=== PATIENT | female | born 1945 | race Caucasian/White ===

== ENCOUNTER → 2017-03-12 | Outpatient (CLI) | payer MEDICARE, OTHER ==
--- NOTE | 2017-03-12 14:44 | REPMRS ---
Patient History The patient states she had a clinical breast exam in Patient is postmenopausal. Family history of prostate cancer in maternal grandfather at age 70. Taking estrogen for 11 years. Digital Woman Screen Mammo: March 12, 2017 - Exam #: [id number] Bilateral CC and MLO view(s) were taken. Technologist: Lindy Addison, Technologist Prior study comparison: September 30, 2014, digital woman screen mammo performed at [facility]. March 05, 2012, bilateral bilat screen digital mammo, performed at [facility] ([facility] FINDINGS: The breast tissue is heterogeneously dense. This may lower the sensitivity of mammography. There has been no change in the appearance of the mammogram from the prior studies. There is a moderate amount of residual fibroglandular tissue which is fairly symmetric. There is no interval development of dominant mass, areas of architectural distortion, or clustered microcalcification typical of malignancy. ASSESSMENT: BI-RADS/ACR category 1 mammogram. Negative. Recommendation Routine screening mammogram in 1 year (for women over age 40). This mammogram was interpreted with the aid of an FDA-approved computer-aided dectection system. Electronically Signed By: Raleigh Watson MD 03/12/17 [id number]
--- NOTE | 2017-03-14 08:29 | DEXA ---
AP SPINE L1 - L4 0.976 -1.8 -0.1 LT FEMUR TOTAL 0.886 -1.0 0.5 RT FEMUR TOTAL 0.954 -0.4 1.0 TOTAL BODY TOTAL OTHER DUAL FEMUR FRAX* ASSESSMENT Risk factors: 10 year probability of fracture Major osteoporotic fracture % Hip fracture % COMMENTS: There is low bone density of the spine and hips. Lumbar scoliosis. The density of the spine has decreased 12.9% since the initial exam on 08/2000. The spine density has increased 2.2% since the most recent exam on 09/2014. The density of the left hip has decreased 5.2% since the initial exam on 08/2000. The density of the left hip has increased 1.7% since the most recent exam on 2014. The density of the right hip has decreased 13.2% since the initial exam on 2000. The density of the right hip has increased 2.1% since the most recent exam on 2014. FOLLOW-UP: Recommendation for the next bone density exam: 2 years. ISAAC
== END ==
LOC: M WHC 13:24
PROVIDERS: ATTEND Internal Medicine
DX: Z12.31 Encounter for screening mammogram for malignant neoplasm of breast (principal); M85.80 Other specified disorders of bone density and structure, unspecified site; Z78.0 Asymptomatic menopausal state; Z79.890 Hormone replacement therapy; Z80.42 Family history of malignant neoplasm of prostate
CPT/HCPCS: 77080; G0202

== ENCOUNTER → 2017-10-17 | Outpatient (REF) | payer MEDICARE, OTHER ==
[2017-10-18 16:35] LABS: TOTAL T3 173.6 NG/DL (60.0-181.0)
== END ==
LOC: M LAB REF 12:32
DX: E03.9 Hypothyroidism, unspecified (principal)
CPT/HCPCS: 84480

== ENCOUNTER → 2018-02-20 | Outpatient (CLI) | payer MEDICARE, OTHER | LOC: M RAD 12:14 | DX: E05.90 Thyrotoxicosis, unspecified without thyrotoxic crisis or storm (principal) | CPT/HCPCS: 78012 ==

== ENCOUNTER → 2018-02-20 | Outpatient (REF) | payer MEDICARE, OTHER ==
[2018-02-20 14:09] LABS: BACTERIA, URINE AUTO 1+ (NEGATIVE); MUCUS, URINE SMALL (NEGATIVE); RBC, URINE AUTO 3 /HPF (0-3); SQUAMOUS EPITHELIAL CELL UR AU 0 /HPF (0-6); WBC, URINE AUTO 1 /HPF (0-3)
== END ==
LOC: M LAB REF 13:00
DX: R31.9 Hematuria, unspecified (principal)
CPT/HCPCS: 81015

== ENCOUNTER 2018-03-04 07:43 | Day surgery (SDC) | payer MEDICARE, OTHER ==
[2018-03-04] MEDS ORDERED: PROPOFOL 200 MG/20 ML VIAL As Ordered ×2 (08:11)
[2018-03-04] MEDS ORDERED: LIDOCAINE 2% INJ 100 MG/5 ML SDV (FOR ANES.) As Ordered (08:39)
[2018-03-06] MEDS ORDERED: NS 1,000 ML IV (06:00)
== END 2018-03-04 09:47 | disposition home or self-care (01) ==
LOC: M OPP 07:43
DX: Z12.11 Encounter for screening for malignant neoplasm of colon (principal); Z83.71 Family history of colonic polyps; D12.3 Benign neoplasm of transverse colon; K64.0 First degree hemorrhoids; R00.2 Palpitations; I10 Essential (primary) hypertension; E05.90 Thyrotoxicosis, unspecified without thyrotoxic crisis or storm; M19.90 Unspecified osteoarthritis, unspecified site; G43.909 Migraine, unspecified, not intractable, without status migrainosus; Z78.0 Asymptomatic menopausal state; Z87.442 Personal history of urinary calculi; Z88.8 Allergy status to other drugs, medicaments and biological substances; Z88.5 Allergy status to narcotic agent; Z79.82 Long term (current) use of aspirin; Z79.899 Other long term (current) drug therapy; Z87.891 Personal history of nicotine dependence
CPT/HCPCS: 45385

== ENCOUNTER → 2019-03-13 | Outpatient (CLI) | payer MEDICARE, OTHER ==
[~2019-03-13] MED LIST: ASPI81TA26 PO; ATEN25TA PO; CALCTAB89 PO; COQ1100C PO; D 50CAP PO; HYDR25TAB PO; LISI40TA PO; MAG-400T7 PO; MEGA1CAP3 PO; PRAV40TA2 PO
--- NOTE | 2019-03-13 14:29 | REPMRS ---
Patient History The patient states she had a clinical breast exam in 03/2018. Patient is postmenopausal. Family history of prostate cancer at age 70 in maternal grandfather. Took estrogen for 11 years. 3D TOMOSYNTHESIS WAS PERFORMED. The [facility] lifetime risk for breast cancer is 3.8%. Digital Woman Screen Mammo: March 13, 2019 - Exam #: [id number] Bilateral CC and MLO view(s) were taken. Technologist: Lakia Goodrich, Technologist Prior study comparison: March 12, 2017, digital woman screen mammo performed at [facility]. September 30, 2014, digital woman screen mammo performed at [facility]. FINDINGS: The breast tissue is heterogeneously dense. This may lower the sensitivity of mammography. There has been no change in the appearance of the mammogram from the prior studies. There is a moderate amount of residual fibroglandular tissue which is fairly symmetric. There is no interval development of dominant mass, areas of architectural distortion, or clustered microcalcification typical of malignancy. Assessment: BI-RADS/ACR category 1 mammogram. Negative Mammogram. Recommendation Routine screening mammogram in 1 year (for women over age 40). This mammogram was interpreted with the aid of an FDA-approved computer-aided dectection system. Electronically Signed By: Raleigh Watson MD 03/13/19 [id number]
--- NOTE | 2019-03-19 13:04 | DEXA ---
AP SPINE L1 - L4 0.935 -2.1 -0.4 LT FEMUR TOTAL 0.897 -0.9 0.7 LT NECK 0.880 -1.1 0.6 RT FEMUR TOTAL 0.907 -0.8 0.8 RT NECK 0.786 -1.8 0.0 TOTAL BODY TOTAL OTHER COMMENTS: There is low bone density of the spine and hips. The decreased density of the spine does represent a significant change. The increased density of the left hip does not represent significant change. The decreased density of the right hip does represent a significant change. The density of the spine has decreased 16.5% since the initial exam on 09/13/2000. The spine density has decreased 4.2% since the most recent exam on 03/12/2017. The density of the left hip has decreased 4.1% since the initial exam on 09/13/2000. The density of the left hip has increased 1.2% since the most recent exam on 03/12/2017. The density of the right hip has decreased 17.5% since the initial exam on 09/13/2000. The density of the right hip has decreased 4.9% since the most recent exam on 03/12/2017. FOLLOW-UP: Recommendation for the next bone density exam: 2 years. ISAAC
== END ==
LOC: M WHC 12:49
PROVIDERS: ATTEND Internal Medicine
DX: Z12.31 Encounter for screening mammogram for malignant neoplasm of breast (principal); M81.0 Age-related osteoporosis without current pathological fracture

== ENCOUNTER → 2020-04-27 | Outpatient (CLI) | payer MEDICARE, OTHER ==
--- NOTE | 2020-04-27 15:39 | REPMRS ---
Patient History The patient states she had a clinical breast exam in 09/07 Family history of prostate cancer at age 70 in maternal grandfather. Took estrogen for 11 years. Digital Woman Screen Mammo: April 27, 2020 - Exam #: [id number] Bilateral CC and MLO view(s) were taken. Technologist: Diane Hatfield, Technologist Prior study comparison: March 13, 2019, bilateral digital woman screen mammo performed at [facility]. March 12, 2017, digital woman screen mammo performed at [facility]. September 30, 2014, digital woman screen mammo performed at [facility]. FINDINGS: The breast tissue is heterogeneously dense. This may lower the sensitivity of mammography. The Volpara volumetric breast density category is: C. There is a moderate amount of heterogeneously dense fibroglandular tissue which is fairly symmetric. There is no interval development of dominant mass, architectural distortion, or grouped microcalcification typical of malignancy. There has been no change in the appearance of the mammogram from the prior studies. 3-D tomosynthesis shows no additional findings. Assessment: BI-RADS/ACR category 1 mammogram. Negative Mammogram. Recommendation Routine screening mammogram of both breasts in 1 year (for women over age 40). This patient's [facility] Lifetime Breast Cancer RIsk is estimated at 3.4 %. This mammogram was interpreted with the aid of an FDA-approved computer-aided dectection system. Electronically Signed By: Deng Hawkins MD 04/27/20 [id number]
== END ==
LOC: M WHC 14:48
PROVIDERS: ATTEND Internal Medicine
DX: Z12.31 Encounter for screening mammogram for malignant neoplasm of breast (principal); Z92.23 Personal history of estrogen therapy

== ENCOUNTER → 2020-08-25 | Outpatient (REF) | payer MEDICARE, OTHER ==
[~2020-08-25] MED LIST changes: +HYDR-3490 PO; -HYDR25TAB PO; -LISI40TA PO; +LISI40TA4 PO
[2020-08-25 13:35] LABS: BACTERIA, URINE AUTO NEGATIVE (NEGATIVE); RBC, URINE AUTO 7 /HPF (0-3); SQUAMOUS EPITHELIAL CELL UR AU 0 /HPF (0-6); WBC, URINE AUTO 2 /HPF (0-3)
== END ==
LOC: M LAB REF 11:54
PROVIDERS: ATTEND Internal Medicine
DX: N39.0 Urinary tract infection, site not specified (principal)

== ENCOUNTER → 2020-09-01 | Outpatient (REF) | payer MEDICARE, OTHER ==
[2020-09-01 12:21] LABS: APPEARANCE, URINE CLEAR (CLEAR); BACTERIA, URINE AUTO 1+ (NEGATIVE); BILIRUBIN, URINE AUTO NEGATIVE (NEGATIVE); BLOOD, URINE BLOOD NEGATIVE (NEGATIVE); COLOR, URINE YELLOW (YELLOW); GLUCOSE, URINE (UA) AUTO NEGATIVE (NEGATIVE); KETONE, URINE AUTO NEGATIVE (NEGATIVE); LEUKOCYTE ESTERASE, URINE AUTO NEGATIVE (NEGATIVE); NITRITE, URINE AUTO NEGATIVE (NEGATIVE); PROTEIN, URINE AUTO NEGATIVE (NEGATIVE); RBC, URINE AUTO 10 /HPF (0-3); SPECIFIC GRAVITY URINE AUTO 1.013 (1.002-1.035); SQUAMOUS EPITHELIAL CELL UR AU 0 /HPF (0-6); UROBILINOGEN, URINE AUTO 0.2 mg/dL (0.0-2.0); WBC, URINE AUTO 0 /HPF (0-3)
== END ==
LOC: M LAB REF 11:30
PROVIDERS: ATTEND Internal Medicine
DX: R31.9 Hematuria, unspecified (principal)

== ENCOUNTER → 2020-09-08 | Outpatient (REF) | payer MEDICARE, OTHER ==
[2020-09-08 13:14] LABS: APPEARANCE, URINE CLEAR (CLEAR); BACTERIA, URINE AUTO NEGATIVE (NEGATIVE); BILIRUBIN, URINE AUTO NEGATIVE (NEGATIVE); BLOOD, URINE BLOOD 1+ (NEGATIVE); COLOR, URINE YELLOW (YELLOW); GLUCOSE, URINE (UA) AUTO NEGATIVE (NEGATIVE); KETONE, URINE AUTO NEGATIVE (NEGATIVE); LEUKOCYTE ESTERASE, URINE AUTO NEGATIVE (NEGATIVE); NITRITE, URINE AUTO NEGATIVE (NEGATIVE); PROTEIN, URINE AUTO NEGATIVE (NEGATIVE); RBC, URINE AUTO 2 /HPF (0-3); SPECIFIC GRAVITY URINE AUTO 1.005 (1.002-1.035); SQUAMOUS EPITHELIAL CELL UR AU 0 /HPF (0-6); UROBILINOGEN, URINE AUTO 0.2 mg/dL (0.0-2.0); WBC, URINE AUTO 1 /HPF (0-3)
== END ==
LOC: M LAB REF 11:14
PROVIDERS: ATTEND Internal Medicine
DX: R31.9 Hematuria, unspecified (principal)

== ENCOUNTER → 2020-10-08 | Outpatient (CLI) | payer MEDICARE, OTHER ==
[~2020-10-08] MED LIST changes: +ISOVUE-370 76% 100ML VIAL As Ordered ONE
--- NOTE | 2020-10-08 14:45 | REP ---
INDICATION: HEMATURIA. COMPARISON: None. TECHNIQUE: CT abdomen and pelvis performed without IV contrast. CT abdomen and pelvis performed with IV contrast as well, following intravenous administration of 100 cc of Isovue 370. Sagittal, coronal and 3D MIP reconstruction images are performed. FINDINGS: Lung bases: There are mild bibasilar fibrotic changes. Liver: There is a cluster of tiny calcifications in the right lobe of the liver, with no evidence of liver mass. Gallbladder: Multiple gallstones are seen in a moderately distended gallbladder. No evidence of biliary dilatation. Spleen: Normal. Adrenals: Normal. Pancreas: Normal. Kidneys: No renal or ureteral calculus is seen. There is no hydroureteronephrosis. There is a cyst in the lower pole the right kidney 9 mm in diameter. Two cysts are seen in the upper pole the left kidney, measuring 2.9 cm and 1 cm in diameter respectively. Small and large bowel: Unremarkable. Free fluid: None. Adenopathy: None. Appendix: Not inflamed. Osseous structures: There are degenerative changes of the spine without compression deformity.. Pelvis: No mass. A small left inguinal hernia contains noninflamed fat. There is no bladder calculus or evidence of mass. IMPRESSION: Multiple gallstones in a moderately distended gallbladder. Bilateral renal cysts. No renal, ureteral or bladder calculus. No hydroureteronephrosis. Small left inguinal hernia contains noninflamed fat. <Electronically signed by Raleigh Watson > 10/08/20 0836
== END ==
LOC: M RAD 12:56
PROVIDERS: ATTEND Internal Medicine
DX: E31.9 Polyglandular dysfunction, unspecified (principal)
CPT/HCPCS: 74178; Q9967

== ENCOUNTER → 2021-02-25 | Outpatient (CLI) | payer MEDICARE, OTHER ==
[~2021-02-25] MED LIST changes: -ISOVUE-370 76% 100ML VIAL As Ordered ONE
--- NOTE | 2021-02-25 11:16 | DEXAMM ---
INDICATION: OTHR DISORDER OF BONE DENSITY AND STRUCTURE UNSPEC. COMPARISON: March 13, 2019. TECHNIQUE: Bone density was measured using dual-energy x-ray absorptionmetry (DEXA). FINDINGS: AP SPINE L1-L4 BMD 1.001 g/cm2 Young Adult T-Score -1.6 Age Matched Z-Score 60.2. LT FEMUR, TOTAL BMD 0.878 g/cm2 Young Adult T-Score -1.0 Age Matched Z-Score 0.6. LT NECK BMD 0.910 g/cm2 Young Adult T-Score -0.9 Age Matched Z-Score 0.9. RT FEMUR, TOTAL BMD 0.927 g/cm2 Young Adult T-Score -0.6 Age Matched Z-Score 1.0. RT NECK BMD 0.864 g/cm2 Young Adult T-Score -1.3 Age Matched Z-Score 0.6. IMPRESSION: There is low bone density of the spine. There is low bone density of the left hip. There is low bone density of the right hip. The density of the spine has decreased 10.6% since the initial exam on September 13, 2000. The density of the spine increased 7.1% since the most recent exam on March 13, 2019. The density of the left hip has decreased 6.1% since the initial exam on September 13, 2000. The density of the left hip has decreased 2.1% since the most recent exam on March 13, 2019. The density of the right hip has decreased 15.7% since the initial exam on September 13, 2000. The density of the right hip has increased 2.2% since the most recent exam on March 13, 2019. FOLLOW-UP: Recommendation for the next bone density exam: 2-5 years. <Electronically signed by Deng Hawkins > 02/25/21 1110
== END ==
LOC: M WHC 09:15
PROVIDERS: ATTEND Internal Medicine
DX: M85.851 Other specified disorders of bone density and structure, right thigh (principal); M85.852 Other specified disorders of bone density and structure, left thigh; M85.88 Other specified disorders of bone density and structure, other site; Z12.31 Encounter for screening mammogram for malignant neoplasm of breast; Z53.9 Procedure and treatment not carried out, unspecified reason

== ENCOUNTER → 2021-04-28 | Outpatient (CLI) | payer MEDICARE, OTHER ==
--- NOTE | 2021-04-28 10:34 | REPMRS ---
Patient History The patient states she had a clinical breast exam in 04/2021. Family history of prostate cancer at age 70 in maternal grandfather. Took estrogen for 11 years. Patient states no breast complaints today. Patient has signed MRS History Sheet. Digital Woman Screen Mammo: April 28, 2021 - Exam #: [id number] Bilateral CC and MLO view(s) were taken. Technologist: Krystal Vasquez Dormitory Maid Prior study comparison: April 27, 2020, bilateral digital woman screen mammo performed at [facility] [place]. March 13, 2019, bilateral digital woman screen mammo performed at [facility] [place]. FINDINGS: The breast tissue is heterogeneously dense. This may lower the sensitivity of mammography. Screening. Digital screening (2D) mammography was performed bilaterally in the CC and MLO projections. Additionally, breast tomosynthesis (3D mammography) was performed bilaterally in the CC and MLO projections. Todays exam was compared to the prior exam/exams. By history, the patient has no complaints of a palpable breast abnormality or other significant breast complaints. The Volpara volumetric breast density category is C, the breasts are heterogenously dense which may obscure small masses. The breasts are unchanged in size and shape. There are no jaun luis-soft tissue densities or spiculated masses. There is no internal architectural distortion. There are no suspicious juan luis-calcific clusters. Skin thickening or nipple retraction is not present. IMPRESSION: BI-RADS Category 2- Benign Findings. There is no evidence of malignant alteration of the breasts. Followup examination recommended in one year. This mammogram [facility] FDA approved computer aided detection system for mammography. The lifetime Tyrer-Cuzick score is 3.1% Negative x-ray reports should not delay surgical consultation if a dominant or clinically suspicious mass is present. Due to the density of the breasts or Tyrer Cuzick score of 20% or greater, MRI/whole breast screening ultrasound is warranted. Not all breast cancers can be identified by mammography. Therefore, we recommend that you continue to perform regular breast self-examination and physical examination and then promptly contact your physician of any concerns or changes. Adenosis and dense breasts may obscure an underlying neoplasm. No significant changes when compared with prior studies. Assessment: BI-RADS/ACR category 2 mammogram. Benign Findings. Recommendation Routine screening mammogram of both breasts in 1 year. Electronically Signed By: Asad Swain MD 04/28/21 1147
== END ==
LOC: M WHC 08:50
PROVIDERS: ATTEND Internal Medicine
DX: Z12.31 Encounter for screening mammogram for malignant neoplasm of breast (principal)

== ENCOUNTER → 2021-05-27 | Outpatient (CLI) | payer MEDICARE, OTHER | LOC: M RAD 09:51 | PROVIDERS: ATTEND Internal Medicine | DX: I65.29 Occlusion and stenosis of unspecified carotid artery (principal) ==

== ENCOUNTER → 2021-09-23 | Outpatient (CLI) | payer MEDICARE, OTHER | LOC: M WHC 14:09 | PROVIDERS: ATTEND Internal Medicine | DX: R93.0 Abnormal findings on diagnostic imaging of skull and head, not elsewhere classified (principal) ==

== ENCOUNTER → 2021-10-11 | Outpatient (POV) | payer MEDICARE, OTHER ==
[~2021-10-11] VITALS: Ht 157.5 cm; Wt 60.5 kg
[2021-10-11 08:25] VITALS: BP 154/82
== END ==
LOC: M IRPOV 08:23
PROVIDERS: ATTEND Radiology Diagnostic Radiology
DX: Z01.89 Encounter for other specified special examinations (principal)

== ENCOUNTER → 2022-09-14 | Outpatient (CLI) | payer MEDICARE, OTHER | LOC: M WHC 08:43 | PROVIDERS: ATTEND Internal Medicine | DX: Z12.31 Encounter for screening mammogram for malignant neoplasm of breast (principal) ==

== ENCOUNTER 2023-11-28 07:08 | Day surgery (SDC) | payer MEDICARE, OTHER ==
[~2023-11-28] VITALS: Ht 157.5 cm; Wt 56.7 kg
[~2023-11-28 07:08] MED LIST changes: +AMLO1TAB24 PO; +COQ1200C3 PO; +LIDOCAINE 2% 100MG/5ML SDV (FOR ANES.) As Ordered ONE; +METH25TAB PO; +MULTTAB61 PO; +VITA100093 PO; +propofoL 200 MG/20 ML VIAL As Ordered ONE
[2023-11-28] MEDS: NS 1,000 ML IV ONE (07:29)
[2023-11-28 08:55] VITALS: BP 137/67; TEMP 98.1; O2SAT 98
== END 2023-11-28 09:05 | disposition home or self-care (01) ==
LOC: M OPP 07:08
PROVIDERS: ATTEND Internal Medicine Gastroenterology
DX: Z12.11 Encounter for screening for malignant neoplasm of colon (principal); Z86.010 Personal history of colon polyps; K64.0 First degree hemorrhoids; K57.30 Diverticulosis of large intestine without perforation or abscess without bleeding; I10 Essential (primary) hypertension; E05.90 Thyrotoxicosis, unspecified without thyrotoxic crisis or storm; Z87.891 Personal history of nicotine dependence; Z79.02 Long term (current) use of antithrombotics/antiplatelets; Z79.82 Long term (current) use of aspirin; Z79.899 Other long term (current) drug therapy; Z88.5 Allergy status to narcotic agent; Z88.8 Allergy status to other drugs, medicaments and biological substances

== ENCOUNTER → 2024-01-14 | Outpatient (CLI) | payer MEDICARE, OTHER ==
[~2024-01-14] MED LIST changes: -LIDOCAINE 2% 100MG/5ML SDV (FOR ANES.) As Ordered ONE; -propofoL 200 MG/20 ML VIAL As Ordered ONE
== END ==
LOC: M WHC 08:08
PROVIDERS: ATTEND Internal Medicine
DX: Z12.31 Encounter for screening mammogram for malignant neoplasm of breast (principal); M81.0 Age-related osteoporosis without current pathological fracture

== ENCOUNTER → 2025-05-08 | Outpatient (REF) | payer MEDICARE, OTHER ==
[~2025-05-08] MED LIST changes: +LISI40TA10 PO; -LISI40TA4 PO; +METH-1386 PO; -METH25TAB PO; -PRAV40TA2 PO; +PRAV40TA85 PO
== END ==
LOC: M LAB REF 12:12
PROVIDERS: ATTEND Internal Medicine
DX: R60.0 Localized edema (principal); G43.109 Migraine with aura, not intractable, without status migrainosus; G25.81 Restless legs syndrome